=== PATIENT | male | born 1985 | race Caucasian/White ===

== ENCOUNTER 2017-04-12 22:55 | Emergency (ER) | payer SELFPAY ==
[~2017-04-12 22:55] MED LIST: Sodium Chloride 0.9% 1,000 ML BAG ONE
[2017-04-12] MEDS ORDERED: Ondansetron HCl/PF 4 MG/2 ML Vial ONE (23:30)
[2017-04-12] MEDS ORDERED: Ketorolac Tromethamine 30 MG/ML VIAL ONE (23:30)
[2017-04-12] MEDS ORDERED: Pantoprazole 40 MG VIAL ONE (23:30)
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
[2017-04-12 23:34] LABS: INR-International Normal Ratio 1.1; PTT 23.5 SEC (22.9-36.1); Prothrombin Time 14.2 SEC (12.0-14.7)
[2017-04-12 23:49] LABS: Band 1 % (5-11); CKMB 2.3 ng/mL (0-6.6); Eosinophils 1 % (0-10); Hemoglobin 15.6 g/dL (14.0-18.0); Lymphocytes 3 % (21-51); MDiff Complete? YES; Mean Corpuscular HGB CONC 34.2 g/dL (32.0-36.0); Mean Corpuscular Hemoglobin 29.9 pg (27.0-31.0); Mean Corpuscular Volume 87.5 fl (80.0-94.0); Monocytes 2 % (0-10); Neutrophil 90 % (42-75); PLT Morphology Comment Appears Adequate; Platelet Count 243 thou/uL (130-400); RBC Distribution Width 11.5 % (11.5-14.5); RBC Morphology Normal; Reactive Lymphocytes 3 % (0-10); Red Blood Cell (RBC) Count 5.22 mill/uL (4.70-6.10); Troponin I Less than 0.010 ng/mL (< 0.028); White Blood Cell (WBC) Count 20.2 thou/uL (4.8-10.8)
[2017-04-12 23:53] LABS: ALT (SGPT) 16 U/L (8-55); AST (SGOT) 21 U/L (5-34); Acetaminophen Less than 6.0 mcg/mL (10.0-30.0); Albumin 4.2 g/dL (3.5-5.0); Alcohol Less than 10 mg/dL (Less than 10); Alkaline Phosphatase 57 U/L (40-150); Anion Gap 20 mmol/L (10-20); BUN (Urea Nitrogen) 13 mg/dL (8.9-20.6); Bilirubin, Total 0.5 mg/dL (0.2-1.2); CK (CPK) 244 U/L (30-200); Calc. Creatinine Clearance 0 mL/min (70-130); Calcium 8.9 mg/dL (7.8-10.44); Carbon Dioxide 17 mmol/L (22-29); Chloride 104 mmol/L (98-107); Estimated GFR-MDRD 61; Globulin 3.3 g/dL (2.4-3.5); Glucose 140 mg/dL (70-105); Lipase 19 U/L (8-78); Potassium 3.3 mmol/L (3.5-5.1); Protein, Total 7.5 g/dL (6.0-8.3); Salicylate Less than 8.0 mg/dL (15.0-30.0); Sodium 138 mmol/L (136-145)
--- NOTE | 2017-04-13 00:03 | RAD ---
ABDOMEN TWO VIEWS: 04/12/17 HISTORY: 31-year-old male with hypogastric abdominal pain. The diaphragms are not included on the upright study. No evidence of large or small bowel obstructio n. No overt calculus. IMPRESSION: Unremarkable abdomen two views. Since the hemidiaphragms are not included on the upright study, the possibility of free intraperitoneal air cannot be totally excluded. POS: [facility]
== END 2017-04-13 02:05 | disposition home or self-care (01) ==
LOC: MADERS 22:55
DX: T67.5XXA Heat exhaustion, unspecified, initial encounter (principal); E86.0 Dehydration; X30.XXXA Exposure to excessive natural heat, initial encounter
CPT/HCPCS: 71010; 74020; 80053; 80307; 82150; 82553; 83605; 83690; 83735; 83880; 84484; 85025; 85610; 85730; 87040; 93005; 94760; 96361; 96374; 96375; C9113; J1885; J2405; J7050

== ENCOUNTER 2020-06-28 00:11 | Emergency (ER) | payer SELFPAY ==
[2020-06-28] MEDS ORDERED: Lidocaine 1% 20 ML MDV ONE (00:35)
[2020-06-28] MEDS ORDERED: Boostrix 0.5 ML (Tdap) VIAL ONE (00:35)
[2020-06-28] MEDS ORDERED: Sodium Chloride Irrig Solution 250 ML ONE (01:20)
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
== END 2020-06-28 01:15 | disposition home or self-care (01) ==
LOC: MADERS 00:11
DX: S02.2XXA Fracture of nasal bones, initial encounter for closed fracture (principal); S01.21XA Laceration without foreign body of nose, initial encounter; W22.8XXA Striking against or struck by other objects, initial encounter
CPT/HCPCS: 12013; 70450; 70486; 90471; 90715

== ENCOUNTER 2020-10-01 22:26 | Emergency (ER) | payer SELFPAY ==
[2020-10-01] MEDS ORDERED: Ondansetron ODT 4 MG TAB ONE (22:51)
[2020-10-01] MEDS ORDERED: Clindamycin 150 MG CAP ONE (22:51)
[2020-10-01] MEDS ORDERED: Ketorolac Tromethamine 30 MG/ML VIAL ONE (22:51)
== END 2020-10-01 23:16 | disposition home or self-care (01) ==
LOC: MADERS 22:26
DX: K04.7 Periapical abscess without sinus (principal); K02.9 Dental caries, unspecified
CPT/HCPCS: 96372; 99283; J1885; Q0162

== ENCOUNTER 2021-05-19 13:05 | Emergency (ER) | payer SELFPAY | END 2021-05-19 14:30 | disposition home or self-care (01) | LOC: MADERS 13:05 | DX: T15.01XA Foreign body in cornea, right eye, initial encounter (principal) | CPT/HCPCS: 65222 ==

== ENCOUNTER 2023-01-12 01:14 | Emergency (ER) | payer OTHER ==
[2023-01-12] MEDS ORDERED: Fluorescein Opthalmic Strip ONE (01:49)
[2023-01-12] MEDS ORDERED: Tetracaine 0.5% PF 4 ML BOT ONE (01:49)
== END 2023-01-12 02:09 | disposition home or self-care (01) ==
LOC: MADERS 01:14
DX: H16.133 Photokeratitis, bilateral (principal)
CPT/HCPCS: 99283

== ENCOUNTER 2023-09-22 17:12 | Emergency (ER) | payer OTHER, SELFPAY ==
[2023-09-22] MEDS ORDERED: Acetaminophen 500 MG TAB ONE (17:46)
[2023-09-22] MEDS ORDERED: Lidocaine 1% w/Epinephrine 1:100K 20 ML VIAL ONE (17:46)
[2023-09-22] MEDS ORDERED: Bacitracin 1 PK ONE (17:46)
== END 2023-09-22 19:55 | disposition home or self-care (01) ==
LOC: MADERS 17:12
DX: S02.2XXA Fracture of nasal bones, initial encounter for closed fracture (principal); S02.40DA Maxillary fracture, left side, initial encounter for closed fracture; S01.21XA Laceration without foreign body of nose, initial encounter; S10.91XA Abrasion of unspecified part of neck, initial encounter; S20.412A Abrasion of left back wall of thorax, initial encounter; S20.411A Abrasion of right back wall of thorax, initial encounter; Y00.XXXA Assault by blunt object, initial encounter
CPT/HCPCS: 12011; 70450; 70486

== ENCOUNTER 2023-09-29 09:39 | Emergency (ER) | payer SELFPAY | END 2023-09-29 10:32 | disposition home or self-care (01) | LOC: MADERS 09:39 | DX: S01.21XD Laceration without foreign body of nose, subsequent encounter (principal); Y08.89XD Assault by other specified means, subsequent encounter ==

== ENCOUNTER 2023-11-17 08:09 | Emergency (ER) | payer SELFPAY ==
[2023-11-17] MEDS ORDERED: Fluorescein Opthalmic Strip ONE (08:36)
[2023-11-17] MEDS ORDERED: Tetracaine 0.5% PF 4 ML BOT ONE (08:36)
== END 2023-11-17 08:50 | disposition short-term general hospital (02) ==
LOC: MADERS 08:09
DX: T15.01XA Foreign body in cornea, right eye, initial encounter (principal)
CPT/HCPCS: 99283

== ENCOUNTER 2025-08-09 20:34 | Emergency (ER) | payer SELFPAY ==
[2025-08-09] MEDS ORDERED: Tetracaine 0.5% PF 4 ML BOT ONE (20:41)
[2025-08-09] MEDS ORDERED: Fluorescein Opthalmic Strip ONE (20:41)
== END 2025-08-09 21:40 | disposition home or self-care (01) ==
LOC: MADERS 20:34
DX: H44.601 Unspecified retained (old) intraocular foreign body, magnetic, right eye (principal)
CPT/HCPCS: 65220; 99283